=== PATIENT | male | born 1960 | race Caucasian/White ===

== ENCOUNTER 2019-03-10 14:10 | Outpatient (CLI) | payer OTHER ==
--- NOTE | 2019-03-10 15:14 | RAD ---
LEFT SHOULDER 3 VIEWS: HISTORY: Acute shoulder pain, M25.512. COMPARISON: None. FINDINGS: Moderate degenerative disease of acromioclavicular joint. There are erosions of the footprint greate r tuberosity. Ribs are intact. IMPRESSION: Mild to moderate degenerative and rotator cuff arthropathy. POS: HOME
== END 2019-03-10 14:11 | disposition home or self-care (01) ==
LOC: BICRAD 14:10
PROVIDERS: ATTEND Nurse Practitioner Family
DX: M25.512 Pain in left shoulder (principal); M19.012 Primary osteoarthritis, left shoulder